=== PATIENT | male | born 1960 | race Caucasian/White ===

== ENCOUNTER 2017-09-12 09:14 | Observation (INO) | payer BC ==
[2017-09-12 09:57] LABS: ABS Basophils 0.1 10^3/ul (0-0.2); ABS Eosinophils 0.1 10^3/ul (0-0.6); ABS Lymphocytes 1.2 10^3/ul (1.0-4.8); ABS Neutrophils 7.9 10^3/ul (1.5-7.7); ABS Nucleated RBC 0 10^3/ul; Eosinophil % 0.9 % (0-6); Hematocrit 50 % (42-52); Hemoglobin 16.9 g/dl (14.0-18.0); Lymphocyte % 11.9 % (25-47); Mean Corpuscular HGB Conc 34 g/dl (31-36); Mean Corpuscular Hemoglobin 31 pg (27-31); Mean Corpuscular Volume 91 fL (80-94); Mean Platelet Volume 9 um3 (7.4-10.4); Nucleated Red Blood Cells % 0; Platelet Count 288 10^3/ul (150-450); Red Cell Distribution Width 13 % (10.5-15); White Blood Count 10.3 10^3/ul (3.5-10.8)
[2017-09-12 10:18] LABS: EGFR Non-African American 93.5 (>60)
[2017-09-12 10:27] LABS: INR 0.91 (0.77-1.02)
--- NOTE | 2017-09-12 10:58 | RAD ---
HISTORY: Confusion, left arm weakness COMPARISONS: April 01, 2017 TECHNIQUE: Multiple contiguous axial CT scans were obtained of the head without intravenous contrast. FINDINGS: HEMORRHAGE/INFARCT: There is no hemorrhage or acute infarct. MASSES/SHIFT: There is no mass or shift. EXTRA-AXIAL SPACES: There are no extra-axial fluid collections. SULCI AND VENTRICLES: The sulci and ventricles are normal in size and position for the patient's stated age. CEREBRUM: There is right frontoparietal and septal malacia. There is dystrophic calcification. BRAINSTEM: There are no focal parenchymal abnormalities. CEREBELLUM: There are no focal parenchymal abnormalities. VESSELS: The vessels are grossly normal. PARANASAL SINUSES: The paranasal sinuses are clear. ORBITS: The orbits are unremarkable. BONES AND SOFT TISSUE: No bone or soft tissue abnormalities are noted. OTHER: None IMPRESSION: RIGHT FRONTOPARIETAL ENCEPHALOMALACIA. NO ACUTE INTRACRANIAL PATHOLOGY.
[2017-09-12] MEDS ORDERED: Aspirin TAB* 325 MG PO ONE (11:40)
[2017-09-12] MEDS ORDERED: Ondansetron INJ* 2 MG/ML VIAL IV PRN (13:25)
[2017-09-12] MEDS ORDERED: Acetaminophen TAB* 325 MG PO PRN (13:25)
[2017-09-12] MEDS ORDERED: NS 0.9% 1000 ML* 1,000 ML IV SCH (13:30)
[2017-09-12] MEDS ORDERED: Iohexol 350* (CONTRAST) 500 ML MDV IV ONE (13:47)
[2017-09-12] MEDS ORDERED: levETIRAcetam TAB* 500 MG PO ONE (15:21)
--- NOTE | 2017-09-12 17:32 | ECHO ---
Patient: ANN MARIE TYLER [facility] Rec#: [id number] : 1960 Date: 09/12/2017 Age: 57y Height: 172.72 cm / 68.0 in Weight: 63.5 kg / 140.0 lbs Sex: M BSA: 1.76 Room#: [facility] Admit Date#: 09/12/2017 Type: Inpatient Referring: Phuc Covington NP Reading: Alexy Blue DO Night Baker: Bryanna Hilario RDCS CC: Henry Sarah MD Transthoracic Echocardiogram Indication: TIA BP: 142/90 HR: 70 Rhythm: NSR with PACs Findings History: CVA, HTN, HLD. Technical Comments: The study quality is fair. The study is technically limited due to poor parasternal windows. Completed at 1530. Left Ventricle: The left ventricular chamber size is normal. Mild concentric left ventricular hypertrophy is observed. Global left ventricular wall motion and contractility are within normal limits. There is normal left ventricular systolic function. The estimated ejection fraction is 55-60%. Abnormal left ventricular diastolic function is observed. There is an E to A reversal in the mitral valve flow pattern suggestive of diastolic dysfunction. Left Atrium: The left atrial chamber size is normal. Right Ventricle: The right ventricular cavity size is normal. The right ventricular global systolic function is mildly reduced. Right Atrium: The right atrial cavity size is normal. Interatrial septum appears intact without evidence of shunting. The bubble study is negative. A patent foramen ovale is not demonstrated with color Doppler and agitated contrast. Aortic Valve: The aortic valve is trileaflet. The aortic valve leaflets are mildly thickened. There is aortic annular calcification.that is mild There is no evidence of aortic regurgitation. There is no evidence of aortic stenosis. Mitral Valve: Mild mitral annular calcification present. The mitral valve leaflets are mildly thickened. There is trace to mild mitral regurgitation. There is no evidence of mitral stenosis. Tricuspid Valve: The tricuspid valve leaflets are normal. There is trace tricuspid regurgitation. Unable to estimate the right ventricular systolic pressure. There is no tricuspid stenosis. Pulmonic Valve: The pulmonic valve appears normal. There is a trace pulmonic regurgitation. There is no pulmonic stenosis. Pericardium: There is no significant pericardial effusion. Aorta: There is no dilatation of the ascending aorta. The aortic root is normal in size. Pulmonary Artery: The main pulmonary artery is not well visualized. Venous: The inferior vena cava is not visualized. The inferior vena cava appears normal in size. There is a greater than 50% respiratory change in the inferior vena cava dimension. Contrast: Normal saline was used as contrast for the bubble study. Images 14 and 15. Intravenous contrast was used to help determine presence of intracardiac shunting. Conclusions The left ventricular chamber size is normal. Mild concentric left ventricular hypertrophy is observed. There is normal left ventricular systolic function. The estimated ejection fraction is 55-60%. The left atrial chamber size is normal. The right ventricular cavity size is normal. The right ventricular global systolic function is mildly reduced. No functionally significant valvular abnormalities noted A patent foramen ovale is not demonstrated with color Doppler and agitated contrast (negative bubble study) Compared to prior study from 08/2016, no significant changes noted. Measurements Name Value Normal Range RVIDd (AP) 2D 2.8 cm (0.9 - 2.6) RVDdMajor (2D) 4 cm (2.2 - 4.4) RAd ISD 4CH 4.5 cm (3.4 - 4.9) RA (A4C)W 4.3 cm (2.9 - 4.6) IVSd (2D) 1.1 cm (0.6 - 1) LVPWd (2D) 1.1 cm (0.6 - 1) LVIDd (2D) 3.7 cm (3.6 - 5.4) LVIDs (2D) 2.8 cm - LV FS (2D) 20 % (25 - 45) Aortic Annulus 1.9 cm (1.4 - 2.6) Ao root diameter (2D) 2.9 cm (2.1 - 3.5) Ascending Ao 3 cm (2.1 - 3.4) Aortic arch 2.1 cm (1.8 - 3.4) LA dimension (AP) 2D 2.8 cm (2.3 - 3.8) LAd ISD 4CH 4.5 cm (2.9 - 5.3) LA ISD 4CH W 3.7 cm (2.5 - 4.5) Name Value Normal Range LA ESV SP 4CH (A/L) 38 ml - LA ESV SP 2CH (A/L) 67 ml - LA ESV BP (A/L) 53 ml - LA ESV BP (A/L) index 30 ml/m2 - LA ESV SP 4CH (MOD) 32 ml - LA ESV SP 2CH (MOD) 64 ml - Name Value Normal Range MV E-wave Vmax 0.62 m/sec - MV deceleration time 163.5 msec - MV A-wave Vmax 0.51 m/sec - MV E:A ratio 1.21 ratio - LV septal e' Vmax 0.06 m/sec - LV lateral e' Vmax 0.1 m/sec - LV E:e' septal ratio 10.33 ratio - LV E:e' lateral ratio 6.2 ratio - Name Value Normal Range AV Vmax 1.6 m/sec - AV VTI 31.1 cm - AV peak gradient 9.87 mmHg - AV mean gradient 6.15 mmHg - LVOT Vmax 1.27 m/sec - LVOT VTI 24.97 cm - LVOT peak gradient 6.48 mmHg - LVOT mean gradient 3.41 mmHg - TIA Vmax 0.45 m/sec - Name Value Normal Range IVC diameter 1 cm - Name Value Normal Range PV Vmax 0.92 m/sec - PV peak gradient 3.38 mmHg -
[2017-09-12] MEDS ORDERED: Atorvastatin* 20 MG TAB ONE (18:18)
[2017-09-12] MEDS ORDERED: Citalopram TAB* 20 MG ONE (18:18)
--- NOTE | 2017-09-12 20:30 | CONS ---
NEUROLOGY CONSULTATION REPORT: DATE OF CONSULT: 09/12/17 PATIENT OF: Dr. Mcarthur, Dr. Bell (stroke neurologist up at [place]), and also Dr. Henry Sarah. HISTORY OF PRESENT ILLNESS: This is 67-year-old right-handed man, who comes in with onset of possible seizure. He has a past history of having a hemorrhagic stroke and he has been left with just some left-sided neglect but he is able to drive and has no limitations and that he had at the time of stroke left arm and leg weakness but made a complete recovery from that. He has been in his usual state of good health when he this morning at roughly 8 o'clock sitting at [facility] drinking a cup of coffee with a friend and his left hand began jerking for about 2 to 3 minutes. He notes that he does not think it was rhythmic. He was completely awake and alert, but he had after which he tried to put his left arm on the table and he could not lift it or move it. He took his right arm, was able to lift it up to the table, within minutes the left arm and hand were back to normal. He said he was asked if there was any staring or confusion. He said there was no staring. He said that there was confusion, when I asked him what he meant by that, he meant that he had trouble moving his left arm afterwards but he had no confusion of thought. He was just unable to lift his left arm. He has had a history of hypertension and hyperlipidemia, history of kidney stones. He had a stroke in October of 2015 and was treated here in [place]. He had extensive workup including angiogram but no cause of his stroke was ever identified. He has had no prior seizures, staring spells, unusual jerking. He also has hyperlipidemia and depression. He is status post hernia repair and nephrolithiasis. MEDICATIONS: Medicines at home include: 1. Lipitor 20 mg daily. 2. Celexa 20 mg daily. ALLERGIES: He has no known drug allergies. FAMILY HISTORY: Negative for seizures. SOCIAL HISTORY: He does not smoke, drink or use drugs. REVIEW OF SYSTEMS: Negative in all 14 spheres other than following a stroke he has also had some left foot numbness that is intermittent. PHYSICAL EXAMINATION: Temperature 97.7, pulse 72, respirations 16, blood pressure 142/90. He is alert and oriented with normal speech and comprehension. Cranial nerves II through XII are intact. Fundi were benign. Motor exam revealed normal tone and strength, and coordination. He had a minimal left pronator drift compared to the right. Reflexes were 2+ on the left , 2- on the right. Toes were downgoing. Chest: Clear. Cardiovascular: Regular rate and rhythm. Abdomen is soft with positive bowel sounds. DIAGNOSTIC DATA/LABORATORY DATA: His CT scan shows his right frontal parietal encephalomalacia but no acute findings. He has had a normal CBC. Normal INR and PTT. CMP normal. His LDL was 106. His serum alcohol less than 10. ASSESSMENT AND PLAN: I discussed with Onel that he has most likely a new seizure even though we discussed it is nonrhythmic, both the length of the time and the fact that he was weak following this abnormal movement suggested that this was a seizure with probably postictal thoughts. It is conceivable that this could be a new stroke, but this is much less likely. He will be getting an MRI scan and if there is evidence of stroke we would have to address that. He is getting an echo. At this point, we will be starting Keppra on him and he will be getting an EEG as well. Follow up as an outpatient will be through Dr. Mcarthur. Thank you for sharing his case. [id number]/[facility] #: [id number] OMAR
--- NOTE | 2017-09-12 20:30 | HP ---
CC: Dr. Sarah; Dr. Venegas; Dr. Mcarthur * HISTORY AND PHYSICAL: DATE OF ADMISSION: 09/12/17 PRIMARY CARE PROVIDER: Dr. Sarah. CONSULTING NEUROLOGIST: Dr. Venegas. MY ATTENDING PHYSICIAN WHILE IN THE HOSPITAL: Dr. Dannielle Denson * (report dictated by Piedad Covington NP) CHIEF COMPLAINT: 1. Left arm tremor. 2. Left arm weakness. HISTORY OF PRESENT ILLNESS: Mr. Murray is a 57-year-old male patient, who carries a history of hyperlipidemia, hemorrhagic CVA in the past, hypertension, and nephrolithiasis. He comes in to the ER today stating that he was sitting, drinking cup of coffee with his friend this morning, and he noticed his left arm started shaking uncontrollably. It lasted 2 to 3 minutes. He grabbed this arm with his right arm, set it on his lap and the shaking had stopped. He went to then go try to lift the arm place it on the table, but he noticed it was pretty weak and he could not do it. He really had to think to get the arm up to the top of the table. He denied having any chest pain, shortness of breath, fevers, chills. No facial drooping. No weakness to the left leg. Denied having any trouble with the vision but he was concerned because this had happened in his previous history. So, he came in to the emergency department today to be evaluated. There was concern for possible seizure versus TIA. Denies having any recent changes in blood pressure. Denies having any chest discomfort. There has been no shortness of breath. No coughing or fevers recently. Evaluated in the ED. Because of his past medical history and the fact that he was reporting signs of possible TIA versus partial seizure, we were asked to evaluate for admission. PAST MEDICAL HISTORY: Significant for: 1. Nephrolithiasis. 2. Hypertension. 3. Hyperlipidemia. 4. History of hemorrhagic CVA. 5. Depression. PAST SURGICAL HISTORY: 1. He has had a hernia repair. 2. He has had a deviated septum repair. MEDICATIONS: Home medications include: 1. Lipitor 20 mg daily. 2. Celexa 20 mg daily. ALLERGIES TO MEDICATIONS: Include no known drug allergies. FAMILY HISTORY: Both his parents had trouble with heart disease. SOCIAL HISTORY: He does not smoke, does not drink alcohol. Surrogate decision maker is his . REVIEW OF SYSTEMS: There is no documented fever. He denied having any significant weight change. There was no double vision. He denies having any ear discharge. There is no rhinorrhea. No sore throat. No thyroid enlargement. Denies having any chest pain. There is no orthopnea. There is no nocturnal dyspnea. He denies having any abdominal pain. There was no nausea , no vomiting. No dysuria, no frequency. There was question of partial seizure , but there is no loss of consciousness. No pruritus and no skin ulcerations. Review of 14 systems completed, all others negative. PHYSICAL EXAMINATION GENERAL: At this time, Mr. Murray is a 57-year-old male patient. He is sitting in the hospital bed. He does not appear to be in any acute distress. VITAL SIGNS: Blood pressure 142/90, pulse 72, respirations 16, O2 sat 100%, temperature 97.7. HEENT: Head: Atraumatic. Eyes: EOMs are intact. Sclerae anicteric and not pale. Throat: Oral mucosa appears to be moist. No oropharyngeal erythema. NECK: Supple. LUNGS: Clear to auscultation. No wheezes, rales, or rhonchi. HEART: Sounds S1, S2. Regular rate and rhythm. No murmurs, rubs, or gallops. ABDOMEN: Soft, flat, nontender. Bowel sounds are present. EXTREMITIES: Pulses were 2+ throughout. He is moving all 4 extremities with 5/ 5 strength. NEUROLOGIC: The patient is awake. He is alert. His speech is clear. His tongue is midline. His office machines teacher were equal. Cranial nerves II through XII were intact. [id number] was intact bilaterally. Fuah-ul-nyrj was intact bilaterally. He had 5/5 strength. No focal deficits. SKIN: Intact. DIAGNOSTIC STUDIES/LAB DATA: WBC 10.3, RBC of 5.50, hemoglobin of 16.9, hematocrit of 50, platelet count was 288. The INR was 0.91, PTT of 32.8. The sodium was 139, potassium of 3.8, chloride of 103, bicarb 29, BUN 17, creatinine of 0.84, glucose 106, lactate 1.3, calcium 9.4. Total bili 0.6, AST 19, ALT 21, alk phos 41. Troponin 0. Albumin was 4.3. His LDL was 106. Toxicology: Alcohol less than 10. He did have a brain CT, which revealed right frontoparietal encephalomalacia. No acute intracranial pathology. EKG shows a normal sinus rhythm, rate of 79. No ST elevations or T-wave inversions. Old medical records were reviewed. ASSESSMENT AND PLAN: Mr. Murray is a 57-year-old male patient coming in to the ED today with complaints of shaking left arm, in addition to this, weakness. He will be evaluated and he will be admitted under observation status for: 1. Seizure versus transient ischemic attack. At this point, he is certainly at risk for seizure. He may have had a partial seizure because of the history of bleeding, although he also has risk factors for transient ischemic attack. I did touch base with Dr. Venegas. The plan will be to get an MRI. Depending on the MRI findings, we may consider pursuing a CTA of the head and neck and an echo with a bubble study. I am going to hold off on aspirin at this point until we have further MRI findings because of his history of bleeding. I am going to get records from Dr. Bell's office. He had an MRI about 5 weeks ago and we are going to try to get all records from over at [place] to see what type of studies he had done there. We will continue with neuro checks and place the patient on telemetry. We will get lipid panel in the morning and Dr. Venegas will evaluate. 2. Hypertension. At this point, his blood pressure is 142/90. Because there is a concern for possible transient ischemic attack, I would treat him typically. If the systolic blood pressure gets greater than 180, I would treat him and if the diastolic is greater than 100, I would treat him with blood pressure meds because of the history of bleeding and we will follow him closely. 3. History of hyperlipidemia. Continue statin therapy. 4. Depression. Continue with supportive care. 5. DVT prophylaxis. I am going to put him on SCDs. 6. Code status. Full code. 7. Fluids, electrolytes, and nutrition. He can have a heart healthy diet. TIME SPENT: On admission 60 minutes, greater than half the time was spent face- to- face with the patient obtaining my history and physical; other half time was spent going over the plan of care with the patient and implementing plan of care. I did discuss the plan of care with my attending, Dr. Denson; she is in agreement. PIEDAD COVINGTON NP [id number]/[facility] #: [id number] OMAR
[2017-09-13 06:01] LABS: ABS Basophils 0.1 10^3/ul (0-0.2); ABS Eosinophils 0.2 10^3/ul (0-0.6); ABS Lymphocytes 1.9 10^3/ul (1.0-4.8); ABS Monocytes 1.3 10^3/ul (0-0.8); ABS Neutrophils 5.7 10^3/ul (1.5-7.7); ABS Nucleated RBC 0 10^3/ul; Hematocrit 46 % (42-52); Hemoglobin 15.4 g/dl (14.0-18.0); Lymphocyte % 20.9 % (25-47); Mean Corpuscular HGB Conc 34 g/dl (31-36); Mean Corpuscular Hemoglobin 30 pg (27-31); Mean Corpuscular Volume 91 fL (80-94); Mean Platelet Volume 9 um3 (7.4-10.4); Nucleated Red Blood Cells % 0.1; Platelet Count 268 10^3/ul (150-450); Red Blood Count 5.06 10^6/ul (4.0-5.4); Red Cell Distribution Width 13 % (10.5-15); White Blood Count 9.2 10^3/ul (3.5-10.8)
[2017-09-13 06:13] LABS: INR 0.99 (0.77-1.02)
[2017-09-13 06:21] LABS: EGFR Non-African American 88.6 (>60)
--- NOTE | 2017-09-13 07:39 | RAD ---
HISTORY: TIA, dizziness, off balance COMPARISONS: February 27, 2017, head CT dated September 12, 2017 TECHNIQUE: The following sequences were obtained of the head: Sagittal T1-weighted images, axial T2-weighted images, axial FLAIR images, axial susceptibility weighted images, axial T1-weighted images. Additionally, axial diffusion-weighted images were obtained with calculated apparent diffusion coefficients. FINDINGS: HEMORRHAGE/INFARCT: There is no hemorrhage or acute infarct. MASSES/SHIFT: There is no mass or shift. EXTRA-AXIAL SPACES/MENINGES: There are no extra-axial fluid collections. SULCI AND VENTRICLES: The sulci and ventricles are normal in size and position for the patient's stated age. CEREBRUM: There is right frontoparietal encephalomalacia, with susceptibility artifact. There are scattered small foci of elevated T2/FLAIR signal bilaterally. These are stable from the previous examination. BRAINSTEM: There is elevated signal consistent with Wallerian degeneration within the right cerebral peduncle. CEREBELLUM: There are no focal parenchymal abnormalities. The cerebellar tonsils are normal in size and position. SELLA: The sella is normal. PINEAL: The pineal region is clear. CP ANGLE/TEMPORAL BONES: The labyrinthine structures are grossly normal. VESSELS: Normal flow-voids are noted within the visualized vertebral vasculature. DIFFUSION ABNORMALITIES: There are no diffusion abnormalities. PARANASAL SINUSES/MASTOIDS: The paranasal sinuses are clear. ORBITS: The orbits are unremarkable. BONES AND SOFT TISSUE: No bone or soft tissue abnormalities are noted. OTHER: None IMPRESSION: 1. RIGHT FRONTOPARIETAL ENCEPHALOMALACIA CONSISTENT WITH PREVIOUS HEMORRHAGE. 2. NO RESTRICTED DIFFUSION TO SUGGEST ACUTE INFARCT. 3. STABLE SCATTERED NONSPECIFIC WHITE MATTER CHANGES.
--- NOTE | 2017-09-13 08:10 | ED ---
Jaime Vidales Gabriel, scribed for Vinayak Tang MD on 09/12/17 at 0942 . Neurological HPI - HPI Summary HPI Summary: This patient is a 57 year old M presenting to [facility] with a chief complaint of a possible CVA since 40 minutes [employer]. Patient reports confusion, disorientation, UE shaking, HANDLEY, dizziness, and difficulty ambulating. Patient states he was drinking is morning coffee when he was unable to stop his hand from shaking and then the symptoms listed began. Currently all have resolved except for the dizziness. He states the symptoms felt similar to his previous CVA so he contacted his neurologist who suggested he go to [address] [place] [address] but he decided to come to the ED instead. - History of Current Complaint Chief Complaint: EDNeurologicalDeficit Stated Complaint: CONFUSED/LT ARM SHAKEY Hx Obtained From: Patient Onset/Duration: Started hours ago - 1, Still Present, Resolved Timing: Constant Onset Severity: Moderate Current Severity: Mild Seizure Severity: Mild - in LUE Pain Intensity: 0 Pain Scale Used: 0-10 Numeric Syncope Context: Loss of Consciousness: No Associated Signs and Symptoms: Positive: Confusion, Dizziness - Allergy/Home Medications Allergies/Adverse Reactions: Allergies Allergy/AdvReac Type Severity Reaction Status Date / Time No Known Allergies Allergy Verified 04/01/17 12:25 Home Medications: Home Medications Atorvastatin* [Lipitor*] 20 mg PO DAILY 09/12/17 [History Confirmed 09/12/17] Citalopram TAB* [CeleXA TAB*] 20 mg PO DAILY 09/12/17 [History Confirmed ] PMH/Surg Hx/FS Hx/Imm Hx Endocrine/Hematology History: Denies: Hx Diabetes Cardiovascular History: Denies: Hx Hypertension, Hx Pacemaker/ICD History: Reports: Hx Kidney Stones - RIGHT SIDE Denies: Hx Renal Disease Sensory History: Denies: Hx Hearing Aid Neurological History: Reports: Hx CVA Psychiatric History: Denies: Hx Panic Disorder - Surgical History Surgery Procedure, Year, and Place: HERNIA. DEVIATED SEPTUM Infectious Disease History: No Infectious Disease History: Denies: Traveled Outside the [place] in Last 30 Days - Family History Known Family History: Positive: Cardiac Disease Negative: Hypertension, Diabetes, Renal Disease, Respiratory Disease, Seizure Disorder, Blood Disorder - Social History Occupation: Employed Full-time Lives: With Family Alcohol Use: None Substance Use Type: Reports: None Smoking Status (MU): Unknown if Ever Smoked Review of Systems Negative: Fever Neurological: Other - confusion, UE shaking, HANDLEY, dizziness, and difficulty ambulating. Positive: Headache All Other Systems Reviewed And Are Negative: Yes Physical Exam - Summary Physical Exam Summary: VITAL SIGNS: Reviewed. GENERAL: Patient is a well-developed and nourished male who is lying comfortable in the stretcher. Patient is not in any acute respiratory distress. HEAD AND FACE: No signs of trauma. No ecchymosis, hematomas or skull depressions. No sinus tenderness. EYES: PERRLA, EOMI x 2, No injected conjunctiva, no nystagmus. No photophobia. EARS: Hearing grossly intact. Ear canals and tympanic membranes are within normal limits. MOUTH: Oropharynx within normal limits. NECK: Supple, trachea is midline, no adenopathy, no JVD, no carotid bruit, no c- spine tenderness, neck with full ROM. No meningeal signs, no Kernig's or brudzinskis signs. CHEST: Symmetric, no tenderness at palpation LUNGS: Clear to auscultation bilaterally. No wheezing or crackles. CVS: Regular rate and rhythm, S1 and S2 present, no murmurs or gallops appreciated. ABDOMEN: Soft, non-tender. No signs of distention. No rebound no guarding, and no masses palpated. Bowel sounds are normal. EXTREMITIES: FROM in all major joints, no edema, no cyanosis or clubbing. NEURO: Alert and oriented x 3. No acute neurological deficits. Speech is normal and follows commands. SKIN: Dry and warm GCS: 15 Vital Signs On Initial Exam: Initial Vitals Temp Pulse Resp BP Pulse Ox 98.4 F 73 16 191/101 98 09/12/17 09:18 09/12/17 09:18 09/12/17 09:18 09/12/17 09:18 09/12/17 09:18 Diagnostics - Vital Signs Vital Signs Temp Pulse Resp BP Pulse Ox 09/12/17 09:18 98.4 F 73 16 191/101 98 - Laboratory Lab Results: Lab Results 09/12/17 09/12/17 09/12/17 Range/Units 09:40 09:40 09:40 WBC 10.3 (3.5-10.8) 10^3/ul RBC 5.50 H (4.0-5.4) 10^6/ul Hgb 16.9 (14.0-18.0) g/dl Hct 50 (42-52) % MCV 91 (80-94) fL MCH 31 (27-31) pg MCHC 34 (31-36) g/dl RDW 13 (10.5-15) % Plt Count 288 (150-450) 10^3/ul MPV 9 (7.4-10.4) um3 Neut % (Auto) 76.8 (38-83) % Lymph % (Auto) 11.9 L (25-47) % Hickman % (Auto) 9.8 H (1-9) % Eos % (Auto) 0.9 (0-6) % Baso % (Auto) 0.6 (0-2) % Absolute Neuts (auto) 7.9 H (1.5-7.7) 10^3/ul Absolute Lymphs (auto) 1.2 (1.0-4.8) 10^3/ul Absolute Monos (auto) 1.0 H (0-0.8) 10^3/ul Absolute Eos (auto) 0.1 (0-0.6) 10^3/ul Absolute Basos (auto) 0.1 (0-0.2) 10^3/ul Absolute Nucleated RBC 0 10^3/ul Nucleated RBC % 0 INR (Anticoag Therapy) 0.91 (0.77-1.02) APTT 32.8 (26.0-36.3) seconds Sodium 139 (133-145) mmol/L Potassium 3.8 (3.5-5.0) mmol/L Chloride 103 (101-111) mmol/L Carbon Dioxide 29 (22-32) mmol/L Anion Gap 7 (2-11) mmol/L BUN 17 (6-24) mg/dL Creatinine 0.84 (0.67-1.17) mg/dL Est GFR ( Amer) 120.3 (>60) Est GFR (Non-Af Amer) 93.5 (>60) BUN/Creatinine Ratio 20.2 H (8-20) Glucose 106 H (70-100) mg/dL Lactic Acid (0.5-2.0) mmol/L Calcium 9.4 (8.6-10.3) mg/dL Total Bilirubin 0.60 (0.2-1.0) mg/dL AST 19 (13-39) U/L ALT 21 (7-52) U/L Alkaline Phosphatase 41 (34-104) U/L Troponin I 0.00 (<0.04) ng/mL Total Protein 7.3 (6.4-8.9) g/dL Albumin 4.3 (3.2-5.2) g/dL Globulin 3.0 (2-4) g/dL Albumin/Globulin Ratio 1.4 (1-3) Triglycerides 93 mg/dL Cholesterol 180 mg/dL LDL Cholesterol 106 mg/dL HDL Cholesterol 55.3 mg/dL Serum Alcohol < 10 (<10) mg/dL Blood Type Antibody Screen 09/12/17 09/12/17 Range/Units 09:40 09:40 WBC (3.5-10.8) 10^3/ul RBC (4.0-5.4) 10^6/ul Hgb (14.0-18.0) g/dl Hct (42-52) % MCV (80-94) fL MCH (27-31) pg MCHC (31-36) g/dl RDW (10.5-15) % Plt Count (150-450) 10^3/ul MPV (7.4-10.4) um3 Neut % (Auto) (38-83) % Lymph % (Auto) (25-47) % Hickman % (Auto) (1-9) % Eos % (Auto) (0-6) % Baso % (Auto) (0-2) % Absolute Neuts (auto) (1.5-7.7) 10^3/ul Absolute Lymphs (auto) (1.0-4.8) 10^3/ul Absolute Monos (auto) (0-0.8) 10^3/ul Absolute Eos (auto) (0-0.6) 10^3/ul Absolute Basos (auto) (0-0.2) 10^3/ul Absolute Nucleated RBC 10^3/ul Nucleated RBC % INR (Anticoag Therapy) (0.77-1.02) APTT (26.0-36.3) seconds Sodium (133-145) mmol/L Potassium (3.5-5.0) mmol/L Chloride (101-111) mmol/L Carbon Dioxide (22-32) mmol/L Anion Gap (2-11) mmol/L BUN (6-24) mg/dL Creatinine (0.67-1.17) mg/dL Est GFR ( Amer) (>60) Est GFR (Non-Af Amer) (>60) BUN/Creatinine Ratio (8-20) Glucose (70-100) mg/dL Lactic Acid 1.3 (0.5-2.0) mmol/L Calcium (8.6-10.3) mg/dL Total Bilirubin (0.2-1.0) mg/dL AST (13-39) U/L ALT (7-52) U/L Alkaline Phosphatase (34-104) U/L Troponin I (<0.04) ng/mL Total Protein (6.4-8.9) g/dL Albumin (3.2-5.2) g/dL Globulin (2-4) g/dL Albumin/Globulin Ratio (1-3) Triglycerides mg/dL Cholesterol mg/dL LDL Cholesterol mg/dL HDL Cholesterol mg/dL Serum Alcohol (<10) mg/dL Blood Type A Positive Antibody Screen Negative Result Diagrams: 09/13/17 05:42 09/13/17 05:42 Lab Statement: Any lab studies that have been ordered have been reviewed, and results considered in the medical decision making process. - CT CT Brain CT Interpretation Completed By: Radiologist - RIGHT FRONTOPARIETAL ENCEPHALOMALACIA. NO ACUTE INTRACRANIAL PATHOLOGY. ED physician has reviewed this radiology report. - EKG 0942 Cardiac Rate: NL EKG Rhythm: Sinus Rhythm - at 79 BPM EKG Interpretation: normal axis, no ST elevations EKG Comparison: No Significant Change - in comparision to EKG from 09/08/04 Course/Dx - Course Assessment/Plan: This patient is a 57 year old M presenting to [facility] with a chief complaint of a possible CVA since 40 minutes [employer]. Patient reports confusion, disorientation, UE shaking, HANDLEY, dizziness, and difficulty ambulating. Patient states he was drinking is morning coffee when he was unable to stop his hand from shaking and then the symptoms listed began. Currently all have resolved except for the dizziness. He states the symptoms felt similar to his previous CVA so he contacted his neurologist who suggested he go to [address] [place] [address] but he decided to come to the ED instead. An EKG reveals NSR. CT Brain reveals, per radiologist, NO ACUTE INTRACRANIAL PATHOLOGY. Test results with no significant abnormalities except. Patient was hypertensive there for given labetalol he is feeling better. Due to LUE weakness and tremors I consulted Dr. Denson. The pt is hemodynamically stable, alert and oriented x3. We discussed patient care with Dr. Denson and they agreed to admit the patient. Patient will be admitted. The patient is agreeable with this plan. - Differential Dx Differential Diagnoses Neuro: Positive: Cerebrovascular Accident, Seizure Disorder, Transient Ischemic Attack, Vasovagal Reaction - Diagnoses Provider Diagnoses: TIA (transient ischemic attack), Hypertensive encephalopathy - Physician Notifications Discussed Care Of Patient With: Dannielle Denson Time Discussed With Above Provider: 11:37 Instructed by Provider To: Other - We discussed patient care with Dr. Denson and they agreed to admit the patient. - Critical Care Time Critical Care Time: 30-74 min Discharge - Discharge Plan Condition: Fair Disposition: ADMITTED TO [facility] The documentation as recorded by the Jaime hogan Gabriel accurately reflects the service I personally performed and the decisions made by me, Vinayak Tang MD.
[2017-09-13] MEDS ORDERED: Aspirin Low Dose CHEW TAB* 81 MG PO SCH (09:00)
[2017-09-13] MEDS ORDERED: levETIRAcetam TAB* 500 MG PO SCH (09:00)
[2017-09-13] MEDS ORDERED: Citalopram TAB* 20 MG PO SCH (09:00)
[2017-09-13] MEDS ORDERED: Atorvastatin* 20 MG TAB PO SCH (09:00)
[2017-09-13 13:06] VITALS: BP 120/82
--- NOTE | 2017-09-14 02:24 | PN ---
PROGRESS NOTE: DATE OF VISIT: DATE OF DICTATION: 09/13/17 PATIENT OF: Dr. Mcarthur and Neil. HISTORY: This 57-year-old man who feels back to his normal baseline and has had no further events. His medications continue to be his Celexa 20 mg daily, Lipitor 20 mg daily. He did not start the Keppra because of concern of further depression, anxiety. When I discussed initially with him, he did not have significant depression, but on thinking about it further, he became quite concerned about if his depression became worse and elected not to be given the medicine. REVIEW OF SYSTEMS: Negative in all 14 spheres of HPI. PHYSICAL EXAMINATION: Vital Signs: Temperature 97.5, pulse 69, respirations 16 , blood pressure 120/82. He is alert and oriented with normal speech and comprehension. Cranial nerves II through XII were intact. Motor exam revealed normal tone and strength. Chest: Clear. Cardiovascular: Regular rate and rhythm. IMAGING: His MRI scan was reviewed and continued to show his right frontoparietal encephalomalacia, some white matter disease, but no acute stroke. His transthoracic echo was negative for clot and negative bubble study. CBC was benign. He had normal INR and PTT. He had a normal CMP. His LDL was 97. Hemoglobin A1c was 5.8. IMPRESSION: I discussed with Onel and his at length today that the abnormal jerking that he had followed by weakness probably represented 2 or 3 minutes seizure followed by a brief postictal Jim's. This was the most likely scenario, although his EEG was normal as often the case in between seizures. I discussed with his prior stroke and this probable seizure, he is at significant risk for further seizures, which could be bigger, it could affect level of consciousness and then driving would be more of an issue. He is going to be speaking to Dr. Mcarthur about when he can begin driving and in discussing the pros and cons of Trileptal, Depakote, and Vimpat with him and his in detail , he is electing to go on Trileptal 300 twice a day for a couple of weeks, then go up to 300 in the morning and 600 at night. I discussed side effects with him including the hyponatremia effect on CBC and the allergic reaction it could develop. If he gets fever and rash, he knows to stop the medicine and then call the neurologist. Thank you for sharing his case. [id number]/[facility] #: [id number] OMAR
--- NOTE | 2017-09-14 03:55 | EEG ---
ELECTROENCEPHALOGRAPHY: DATE OF STUDY: 09/12/17 - ROOM #443 DATE OF DICTATION: 09/13/17 PATIENT OF: Phuc Covington NP and Alexia Mcarthur MD CLINICAL PROBLEM: This is a 57-year-old man being evaluated for possible seizure. MEDICATIONS: Not listed, but include no anticonvulsants. He is on Celexa. REPORT: With the patient awake, background cerebral activity consists of moderate amplitude posterior dominant 12 Hz rhythm. With the patient asleep, background consists of diffuse irregular delta and theta activity. During drowsiness, there is some swelling to the theta range. No clear cut epileptiform potentials, focal abnormalities, or major asymmetries of background are noted. CLINICAL IMPRESSION: This awake and asleep EEG is within normal limits. [id number]/[facility] #: [id number] MTDD
--- NOTE | 2017-09-14 18:26 | DS ---
CC: Dr. Henry Sarah; Dr. Alexia Mcarthur * DISCHARGE SUMMARY: DATE OF ADMISSION: 09/12/17 DATE OF DISCHARGE: 09/13/17 PRIMARY CARE PROVIDER: Dr. Henry Sarah. MY ATTENDING WHILE IN THE HOSPITAL: Dr. Raisa Buckley.* (DICTATED BY BRENDON OJEDA) CONSULTING NEUROLOGIST: Dr. Alexia Mcarthur. PRIMARY DISCHARGE DIAGNOSIS: Focal seizure. SECONDARY DISCHARGE DIAGNOSES: 1. Hyperlipidemia. 2. Depression. 3. History of cerebrovascular accident. 4. Nephrolithiasis. 5. Hypertension. 6. Prediabetes. STUDIES DONE WHILE IN THE HOSPITAL: Brain CT from 09/12/17 shows right frontoparietal encephalomalacia, no acute intracranial pathology. Electrocardiogram from 09/12/17 shows normal sinus rhythm, no ST-segment abnormalities, early repolarization in V2 and V3, QTc of 444, no other abnormalities. Brain MRI from 09/12/17 read as right frontoparietal encephalomalacia consistent with previous hemorrhage, no restricted diffusion to suggest acute infarct, stable scattered nonspecific white matter changes. Transthoracic echocardiogram from 09/12/17 shows left ventricular chamber size normal, mild concentric left ventricular hypertrophy is observed. There is normal left ventricular systolic function, estimated ejection fraction 55% to 60 %. Left atrial size and chamber is normal. Right ventricular global systolic function is mildly reduced. There is no valvular abnormalities noted. No PFO demonstrated by carotid Doppler or agitated contrast. MEDICATIONS AT DISCHARGE: 1. Citalopram 20 mg p.o. daily. 2. Lipitor 20 mg p.o. daily. 3. Tylenol 650 mg p.o. q.4 hours as needed. 4. Oxcarbazepine 300 mg p.o. b.i.d. for 2 weeks, and 300 mg in the a.m. and 600 mg in the p.m. afterwards. New medications at discharge: 1. Tylenol. 2. Oxcarbazepine. Medication discontinued at discharge: None. HOSPITAL COURSE: This is a brief summary of the patient's presentation. For more details, please see history and physical from Phuc Covington NP, on . In brief, the patient is a 57-year-old male with a past medical history significant for above, who was at [facility] and had 2 to 3 minutes of shaking in his left arm, which he had no control over, had to stop with his right hand. The patient then had weakness for several minutes afterwards. The patient had no other neurological deficits. No recent illnesses. The patient has been stressed from work and has not been sleeping well. No other abnormalities. The patient came to the hospital and was admitted for concern for seizure versus TIA. The patient had studies as above. The patient had no other significant laboratory abnormalities. The patient's LDL cholesterol is 97, HDL cholesterol 47.2, hemoglobin A1c 5.8. The patient was seen in consultation by Dr. Onel Venegas, who believed this was a partial seizure with following Jim' s paralysis without generalization. The patient was started on Keppra and had no seizure activity while in the hospital. The patient's family was concerned about his response to Keppra, due to the fact that he had depression. The patient was switched to oxcarbazepine and had not taken his first dose at hospitalization and many questions were answered. The patient was instructed not to drive for 5 days after discharge from the hospital. The patient had no other complaints at discharge. PHYSICAL EXAM ON DAY OF DISCHARGE: General: The patient is a 57-year-old male who appears his stated age and sitting comfortably in bed, in no acute distress. Vital Signs: At the time of discharge, temperature 97.5, pulse rate 69, respiratory rate 16, oxygen saturation 97% on room air, blood pressure 120/ 82. HEENT: Head normocephalic, atraumatic. Sclerae anicteric. No conjunctival injection. Nasal mucosa moist. Oral mucosa moist. No pharyngeal erythema, exudates, or discharge. Neck: Supple. Nontender. No lymphadenopathy or carotid bruit auscultated. Cardiac: Regular rate and rhythm. No clicks, murmurs, gallops, or rubs. Pulses 2+ bilateral dorsal pedis , posterior tibialis, and radial areas. No lower extremity edema. Respiratory : Clear to auscultation bilaterally. No wheezes, rales, or rhonchi. Abdomen: Soft, nontender, nondistended. Bowel sounds present, normoactive in all 4 quadrants. No hepatosplenomegaly. No abdominal bruits auscultated. Skin: Clean, dry, and intact. No rash. Neuro: Cranial nerves II through XII intact. Strength: Preserved in the upper and lower extremity distally and proximally. Sensation to light touch normal and equal in the bilateral upper and lower extremities. Reflexes 2+ bilateral biceps, patellar, and Achilles tendons, Babinski's downgoing bilaterally. Psychiatric: Pleasant and cooperative. LABORATORY DATA ON DAY OF DISCHARGE: White blood cell count 9.2, hemoglobin 15.4, platelet count 268. INR 0.99. Sodium 139, potassium 3.9, chloride 108, carbon dioxide 25, anion gap 6, BUN 17, creatinine 0.88, glucose 95, hemoglobin A1c 5.8, calcium 8.8. Other laboratory data of note during admission triglycerides 66, cholesterol 157, LDL cholesterol 97, HDL cholesterol 47.2. Lactic acid 1.3. DISCHARGE PLAN: The patient will be discharged to home. The patient will be started on oxcarbazepine for seizure prevention, to be discontinued at discretion of his outpatient neurologist, Dr. Alexia Mcarthur. The patient has a 50:50 chance per Neurology of having another seizure. The patient should not drive when he has been on the oxcarbazepine for 5 days. The patient should follow up with his outpatient neurologist, Dr. Mcarthur, within 1 month. The patient should return to the hospital for any seizures with generalization. The patient should avoid activities where if he has generalized seizure, he would be unable to have his life saved. The patient should engage in activity as tolerated with the above restrictions. The patient will have a heart healthy diet without caffeine. TIME SPENT: Approximately 60 minutes was spent on this discharge, 30 of which spent [id number] with the patient obtaining history and physical and discussing the treatment plan. BRENDON OJEDA [id number]/[facility] #: [id number] OMAR
== END 2017-09-13 15:28 | disposition home or self-care (01) ==
LOC: ED 09:14 → MEDTELE 11:39
PROVIDERS: ADMIT Internal Medicine; ATTEND Internal Medicine
DX: G40.209 Localization-related (focal) (partial) symptomatic epilepsy and epileptic syndromes with complex partial seizures, not intractable, without status epilepticus (principal); E78.5 Hyperlipidemia, unspecified; F32.9 Major depressive disorder, single episode, unspecified; Z87.09 Personal history of other diseases of the respiratory system; N20.0 Calculus of kidney; I10 Essential (primary) hypertension; R73.03 Prediabetes
CPT/HCPCS: 36415; 70450; 70551; 80048; 80053; 80061; 80320; 83036; 83605; 84484; 85025; 85610; 85730; 86850; 86900; 86901; 93005; 93306; 95819; 99283; A9270-GY; G0378; G0480